=== PATIENT | female | born 1940 | race Caucasian/White ===

== ENCOUNTER 2018-08-03 16:04 | Inpatient (IN) | payer OTHER, MEDICAID ==
[~2018-08-03] VITALS: Ht 162.5 cm; Wt 56.7 kg
--- NOTE | ~2018-08-03 | PR ---
[place], [place] PROGRESS NOTE NAME: EVER DONALD UNIT #: [id number] ROOM: 315 DOCTOR: NARCISA BUNCH MD BIRTHDATE: [birth year] DOS: 08/11/2018 CHIEF COMPLAINT: "Can you get this thing off me." SUMMARY OF THE VISIT: The patient was interviewed as she was sitting in a Rosa chair. She was somewhat preoccupied at first with having the tray top removed. When I told her I did not how to do so and suggest that she use it to read a book, she nodded in approval. She was fairly pleasant and bright. There was no agitation or aggression, no mood lability. She did seem to be outwardly tolerating the medication regimen well without sedation, somnolence, or extrapyramidal symptoms. MENTAL STATUS: She is alert and oriented to person, place, but not time. Mood does seem to be trending towards euthymia. Affect is more appropriate. There is no nohelia, hypomania or psychosis. Short-term memory continues to be problematic. PLAN: I will maintain her current psychotropic regimen, engage in individual and blackwell milieu activity, returning to the least restrictive environment when psychiatrically stable. NARCISA BUNCH MD CM:PNTRANS [phone] NARCISA BUNCH MD 08/11/181952 interface
--- NOTE | ~2018-08-03 | PR ---
[place], [place] PROGRESS NOTE NAME: EVER DONALD UNIT #: [id number] ROOM: 315 DOCTOR: NARCISA BUNCH MD BIRTHDATE: [birth year] DOS: 08/09/2018 INTERVAL NOTE CHIEF COMPLAINT: The patient was somnolent. SUMMARY OF THE VISIT: The patient was sitting in a Rosa chair, sleeping. I attempted to wake her on several occasions, but she opened her eyes only once and then nodded back off. Nurses report that last night she was very scared and was crying on and off through the night and only got 1 hour of sleep despite receiving the Ambien. The Ambien had worked the first day, but now does seem to have lost its efficacy. MENTAL STATUS: My mental status examination this morning is limited due to her overall level of somnolence. On mental status, she was rather somnolent this morning. PLAN: I will discontinue the Ambien and try Klonopin as a multitasker. Not only should this aid sleep, but it should give her some antianxiety effects as well. I will increase her Exelon patch from 9.5 mg a day to 13.3 mg a day maximizing potential benefit and we will also renew her p.r.n. Ativan should she require intervention. We will engage in individual and blackwell milieu activity, returning to the least restrictive environment when psychiatrically stable. NARCISA BUNCH MD CM:PNTRANS [phone] NARCISA BUNCH MD 08/09/18 1033 interface
--- NOTE | ~2018-08-03 | PR ---
[place], [place] PROGRESS NOTE NAME: EVER DONALD UNIT #: [id number] ROOM: 315 DOCTOR: NARCISA BUNCH MD BIRTHDATE: [birth year] DOS: 08/10/2018 INTERVAL NOTE CHIEF COMPLAINT: "Good morning." SUMMARY OF THE VISIT: The patient was interviewed as she was reclining in a Rosa chair, watching television and engaging in conversation with several female peers. She stopped and engaged in conversation with me. She was fairly bright and pleasant and offered no complaints. She reports that she slept well last night and had a good appetite. Mood does seem to be strongly trending towards euthymia and she does seem to be tolerating the current medication regimen well. MENTAL STATUS: She is alert and oriented to person, place, but not to time. Mood does seem to be more euthymic. Affect is more appropriate. There is no nohelia or hypomania. There is no gross psychosis. Short term memory has gaps, otherwise she is intact. PLAN: I will maintain her current psychotropic regimen, engage in individual, and blackwell milieu activity, returning then to the least restrictive environment when psychiatrically stable. NARCISA BUNCH MD CM:PNTRANS [phone] NARCISA BUNCH MD 08/10/18 1558 interface
--- NOTE | ~2018-08-03 | WRIGHTHP ---
[place], [place] PATIENT HISTORY AND PHYSICAL EXAM NAME: EVER DONALD UNIT #: [id number] ROOM: 315 DOCTOR: NARCISA BUNCH MD BIRTHDATE: [birth year] DOS: 08/04/2018 INITIAL PSYCHIATRIC EVALUATION CHIEF COMPLAINT: "Everyone thinks I am a kelley cake." HISTORY OF PRESENT ILLNESS: This is a 77-year-old white female who is a resident of [place] in [facility]. The patient is admitted here to the [facility] due to increased confusion and significant agitation. The patient has been threatening staff saying that she is going to buy a gun and shoot them up and knows. She has actually taken her fingers and simulated a gun action. She also has reported that she will shoot herself as well because she is depressed and despondent. The patient has been very tearful and has not been attending her ADLs. She has not been sleeping or eating well. She is admitted now to rule out organic factors and to stabilize on medication, returning to the least restrictive environment when psychiatrically stable. PAST MEDICAL HISTORY: Remarkable for anorexia, a questionable history of bipolar disorder, cardiac pacemaker placement, thyroid problems, hyperlipidemia, hypertension, gait instability, GERD, debility in general, vascular dementia. ALLERGIES: She has no known allergies. SOCIAL HISTORY: She does not drink, smoke nor does she use illicit drugs. STRENGTHS: Ambulatory, good verbal skills. WEAKNESSES: Poor coping skills, confusion. MENTAL STATUS: She is alert and oriented to person, possibly place, not time. Mood does seem to be depressed with anxious overtones. She endorses multiple neurovegetative symptoms. There is no hypomania or nohelia. There is no gross psychosis. Short-term memory is very problematic. DIAGNOSIS: Major depression, recurrent, severe. PLAN: I have discontinued her Lexapro due to ineffectiveness and maintained her on Namenda, but increase the dose from 15 mg a day to 10 mg twice daily. I have added Remeron 15 mg at bedtime as an antidepressant and also started her on Exelon patch 4.6 mg in the morning to augment the effectiveness of the Namenda. Given the fact that there is some mood lability and inappropriate behavior, I have started Zyprexa 2.5 mg in the a.m. Screening examinations this morning revealed a low vitamin D level of 16.4. I will go ahead and treat with vitamin D 5000 International Units daily. We will engage her in individual and blackwell milieu activity, returning to the least restrictive environment when psychiatrically stable. [place], [place] PATIENT HISTORY AND PHYSICAL EXAM NAME: EVER DONALD UNIT #: [id number] ROOM: [facility] DOCTOR: NARICSA BUNCH MD BIRTHDATE: [birth year] NARCISA BUNCH MD CM:HISPHYS:PATIENT HISTORY AND PHYSICAL EXAMINATION 4 NARCISA BUNCH MD 08/04/18 0952 interface
--- NOTE | ~2018-08-03 | PR ---
[place], [place] PROGRESS NOTE NAME: EVER DONALD UNIT #: [id number] ROOM: 315 DOCTOR: NARCISA BUNCH MD BIRTHDATE: [birth year] DOS: 08/06/2018 INTERVAL NOTE CHIEF COMPLAINT: "Oh, thank you for breakfast." SUMMARY OF THE VISIT: The patient was interviewed as she was finishing her breakfast. She engaged readily in conversation. She was fairly bright and pleasant with me, although nurses report she does have some behaviors later in the day and did not sleep well at all last night. MENTAL STATUS: She is alert and oriented to self, unclear of place, certainly not time. Mood does seem still to be labile and at times inappropriate. There are also depressive overtones present. There is no nohelia or hypomania. Short term memory is problematic. PLAN: I will change her Zyprexa from 2.5 mg in the morning to 2.5 mg at night to help improve her overall sleep picture. I will add Rozerem as a non-addictive sleep aid at bedtime to see if we can get her sleeping at night and therefore be more rested and engaging during the day . We will engage in individual and blackwell milieu activity, returning to the least restrictive environment when psychiatrically stable. NARCISA BUNCH MD CM:PNTRANS [id number] NARCISA BUNCH MD 08/06/18 1237 interface
--- NOTE | ~2018-08-03 | PR ---
[place], [place] PROGRESS NOTE NAME: EVER DONALD UNIT #: [id number] ROOM: 315 DOCTOR: NARCISA BUNCH MD BIRTHDATE: [birth year] DOS: 08/07/2018 CHIEF COMPLAINT: The patient was resting in her bed. SUMMARY OF THE VISIT: The patient was attempted to be interviewed, but she was resting, curled up in a blanket in her bed. Attempts to call out her name and gently put my hand on her shoulder were met with her ignoring me and continuing to attempt to sleep. Nurses report, she had a bad night and did not sleep well and was up and down most of the night. MENTAL STATUS: Limited due to her level of sedation this morning. PLAN: I will maintain her current psychotropic regimen. I will discontinue the Rozerem as it did not seem to be strong enough to sustain sleep and add Ambien 2.5 mg at bedtime. We will monitor for risks, benefits, engage in individual and blackwell milieu activity, returning to the least restrictive environment when psychiatrically stable. NARCISA BUNCH MD CM:PNTRANS [id number] NARCISA BUNCH MD 08/07/18 0935 interface
--- NOTE | ~2018-08-03 | PR ---
[place], [place] PROGRESS NOTE NAME: EVER DONALD UNIT #: [id number] ROOM: 315 DOCTOR: NARCISA BUNCH MD BIRTHDATE: [birth year] DOS: 08/12/2018 INTERVAL NOTE CHIEF COMPLAINT: "I am doing well, thank you." SUMMARY OF THE VISIT: The patient was interviewed as she was sitting in the dining area. She had already eaten breakfast. She engaged readily in conversation, voicing no complaints. She was pleasant upon approach, although superficial. She remains confused, but pleasantly so. MENTAL STATUS: She is alert and oriented to person, unclear place, certainly not time. Mood does seem to be strongly trending towards euthymia. Affect is much more appropriate. There is no nohelia or hypomania noted. Short term memory continues to be problematic. PLAN: I will go ahead and maintain her current psychotropic regimen. Continue to monitor for side effects and benefits, engage in individual and blackwell milieu activity, returning to the least restrictive environment when psychiatrically stable. NARCISA BUNCH MD CM:PNTRANS [id number] NARCISA BUNCH MD 08/13/18 0319 interface
--- NOTE | ~2018-08-03 | DS ---
[place], [place] DISCHARGE SUMMARY NAME: EVER DONALD UNIT #: [id number] ROOM: 315 DOCTOR: NARCISA BUNCH MD BIRTHDATE: [birth year] DOS: 08/13/2018 DISCHARGE SUMMARY CHIEF COMPLAINT: "Everyone thinks I am a kelley cake. HISTORY OF PRESENT ILLNESS: This is a 77-year-old white female who is a resident of [place] in [place], [place]. The patient is admitted here due to increased confusion and significant agitation. The patient has been threatening staff, saying she is going to buy a gun and shoot them and has been using her fingers to simulate a gun. She reports that she will shoot herself as well because she is so depressed and despondent. She is very tearful and has not been attending to her ADLs. She has not been sleeping or eating well. She is admitted to rule out organic factors and to attempt to stabilize on medication. SUMMARY OF HOSPITAL COURSE: The patient was admitted to the unit where her Lexapro was discontinued due to ineffectiveness. Remeron was added as an antidepressant that would rapidly improve sleep and appetite. Additionally, her Abilify was discontinued also due to ineffectiveness and she was started on Zyprexa 2.5 mg in the morning and it was later shifted to nighttime. It was hoped that the Zyprexa would not only increase the effectiveness of the Remeron, but it too would help stimulate appetite and improve sleep. Namenda was increased from its 15 mg dose to 10 mg twice daily and she was started on Exelon patch 4.6 mg a day and over the course of her stay, this was increased to its maximum dose of 13.3 mg a day. Screening examinations revealed her to have a low vitamin D level of 16.4, so she was started on vitamin D 5000 international units daily. With the combination of the Exelon and Namenda impacting positively on ADL maintenance, behavior, and cognition and the Remeron and Zyprexa and improving her mood, the patient improved dramatically. Family wished her to return back to [facility] where she had been earlier because she had done better there and knew more of the people. The patient was discharged to [facility]. MENTAL STATUS AT DISCHARGE: The patient is alert and oriented to person, place, but not time. Mood is much more euthymic and she smiled readily. She engaged in reasonable conversation. Speech rate and pattern was somewhat slow, but normal for the most part. There is no depression, no hypomania or nohelia. There are no gross psychotic symptoms. No delusions, paranoia. Short term memory remains problematic. DIAGNOSES UPON DISCHARGE: Major depression, recurrent with psychotic features and Alzheimer's dementia. DISPOSITION: Her prescriptions have been printed and will be sent with her. I will be the treating psychiatrist upon her admission to [facility]. At the time of discharge, she was medically and psychiatrically stable. [place], [place] DISCHARGE SUMMARY NAME: EVER DONALD UNIT #: [id number] ROOM: [facility] DOCTOR: NARCISA BUNCH MD BIRTHDATE: [birth year] NARCISA BUNCH MD CM:DISCHARG [id number] NARCISA BUNCH MD 08/13/18 1427 interface
--- NOTE | ~2018-08-03 | PR ---
[place], [place] PROGRESS NOTE NAME: EVER DONALD UNIT #: [id number] ROOM: 315 DOCTOR: NARCISA BUNCH MD BIRTHDATE: [birth year] DOS: 08/08/2018 CHIEF COMPLAINT: "Oh, I had breakfast, thank you for asking." SUMMARY OF THE VISIT: The patient was interviewed as she had finished her breakfast and was sitting with several female peers. She engaged readily in conversation, offering no other complaints. Outwardly, I saw no sedation, somnolence, extrapyramidal symptoms or tardive dyskinesia. MENTAL STATUS: She is alert and oriented with significant time gaps. Mood does seem to be more euthymic. Affect is more appropriate. There is no nohelia or hypomania. There is no gross psychosis. Short term memory continues to be problematic. PLAN: I will continue her current psychotropic regimen, engage in individual and blackwell milieu activity, returning to the least restrictive environment when psychiatrically stable. NARCISA BUNCH MD CM:PNTRANS [phone] NARCISA BUNCH MD 08/08/18 1008 interface
--- NOTE | ~2018-08-03 | PR ---
[place], [place] PROGRESS NOTE NAME: EVER DONALD UNIT #: [id number] ROOM: 315 DOCTOR: NARCISA BUNCH MD BIRTHDATE: [birth year] DOS: 08/05/2018 CHIEF COMPLAINT: "Oh, I am fine here, thank you, honey." SUMMARY OF THE VISIT: The patient was interviewed as she was sitting in a Rosa chair watching television. She stopped and engaged in conversation with me. She reports no problems, stating that she slept well, ate well and feels well, is just anxious to be able to go home. She voiced no other complaints. MENTAL STATUS: She is alert and oriented to person, possibly place, not to time. Mood seems more euthymic. Affect is more appropriate. There is no nohelia or hypomania noted. No gross psychotic symptoms. No auditory or visual hallucinations. No delusions, no paranoia. Short-term memory is poor and has gaps. She processes information slowly. PLAN: I will go ahead and increase her Exelon patch from 4.6 to 9.5 mg a day, hoping to impact positively on ADL maintenance, behavior, and cognition. We will engage in individual and blackwell milieu activities, returning to the least restrictive environment when psychiatrically stable. NARCISA BUNCH MD CM:PNTRANS [phone] NARCISA BUNCH MD 08/05/18 1249 interface
[2018-08-03] MEDS ORDERED: ARIPIPRAZOLE5 MG PO (17:19)
[2018-08-03] MEDS ORDERED: DEPAKOTE SPRIN125 MG PO (17:20)
[2018-08-03] MEDS ORDERED: BISACODYL10 MG R (17:20)
[2018-08-03] MEDS ORDERED: FERROUS SULFAT324 M2 PO (17:21)
[2018-08-03] MEDS ORDERED: LOSARTAN POTAS100 M1 PO (17:22)
[2018-08-03] MEDS ORDERED: LEXAPRO5 M1 PO (17:22)
[2018-08-03] MEDS ORDERED: METHIMAZOLE5 M1 PO (17:23)
[2018-08-03] MEDS ORDERED: MEGESTROL ACETA20 MG PO (17:23)
[2018-08-03] MEDS ORDERED: METOPROLOL SUCC50 M1 PO (17:24)
[2018-08-03] MEDS ORDERED: NAMENDA-5 PO (17:25)
[2018-08-03] MEDS ORDERED: NAMENDA10 MG PO (17:25)
[2018-08-03] MEDS ORDERED: PANTOPRAZOLE SO40 MG PO (17:26)
[2018-08-03] MEDS ORDERED: K-TAB20 MEQ PO (17:27)
[2018-08-03] MEDS ORDERED: PRAVASTATIN SOD40 MG PO (17:29)
--- NOTE | 2018-08-03 17:59 | NUR ---
EVER DONALD a 77 year old F admitted via stretcher from [facility] as a voluntary BY POA admission. Arrived on unit at 1759. ALLERGIES: NKA. Vital signs are: 98.5-81-16 150/70 SPO2 96%RA. The client'S POA VERBALLY CONSENTED TO the following forms with stated understanding: Authorization For The Release of Medical Information, Clothing List, Consent to Voluntary Admission and Hospitalization, Consent and Release Forms/Receipt of Rights, Acknowledgement of Advance Directive Information, Behavioral Health Consent Form, and Informed Consent of Medications. WITNESSED BY SECOND RN. [facility] A search was conducted and hazardous articles were removed. Client was oriented to the unit. DAVIDE DANIEL
[2018-08-03 18:21] VITALS: BP 150/70
--- NOTE | 2018-08-03 18:35 | NUR ---
DR SANFORD NOTIFIED OF PT ON UNIT.
[2018-08-03 20:43] VITALS: BP 154/68
--- NOTE | 2018-08-03 22:04 | NUR ---
CALLED RESIDENT AT [phone], SPOKE TO AND UPDATED ON PATIENTS HOME MEDICATIONS STILL NEEDING CONTINUED. NO OTHER ORDERS RECEIVED.
--- NOTE | 2018-08-03 22:43 | NUR ---
ON UNIT TO SEE PATIENT AT THIS TIME.
--- NOTE | 2018-08-04 00:18 | NUR ---
CALLED RESIDENT NUMBER AT [phone] BARDALES, UPDATED ON PATIENTS BLOOD PRESSURE AT HS WAS 154/68 MANUAL AND THE CONTINUED METOPROLOL DIDNT START UNTIL THE AM, STATED TO GIVE 1X DOSE OF METOPROLOL 50MG NOW. NO OTHER ORDERS RECIEVED.
[2018-08-04 01:24] LABS: BILIRUBIN NEGATIVE (NEGATIVE); BLOOD NEGATIVE (NEGATIVE); CLARITY CLEAR (CLEAR); COLOR YELLOW (YELLOW); GLUCOSE NEGATIVE (NEGATIVE); KETONE NEGATIVE (NEGATIVE); LEUKO ESTERASE 2+ (NEGATIVE); NITRITE NEGATIVE (NEGATIVE); PH 5.5 (5.0-9.0); SPECIFIC GRAVITY 1.015 (1.005-1.030); UROBILINOGEN 0.2 E.U./dl (0.2-1.0)
[2018-08-04 01:33] LABS: EPITHELIAL CELLS 15-20; WBC 21-30 wbc/hpf (0-5)
--- NOTE | 2018-08-04 05:25 | NUR ---
P-CONFUSION, AGITATION. PT GERSTURING HAND IN GUN LIKE POSTION WHILE POINTING AT STAFF AND STATING "GET OUT RIGHT NOW BEFORE I PUT BULLETS UP YOUR NOSE". I-ASSESS ORIENTATION, MOOD, AND BEHAVIOR. PROVIDE 1:1 FOR PATIENT TO VOICE FEELINGS WITH EMOTIONAL SUPPORT NEEDED. PROVIDE LOW STIMULI ENVIRONMENT WITH DIVERSION TECHNIQUES TO HELP CALM PATIENT NEEDED. ENCOURAGE MEDICATION COMPLIANCE. R-PT ALERT AND ORIENTED TO SELF, CONFUSED IN ALL OTHER AREAS. MOOD LABILE, ANGRY/IRRITABLE AT TIMES. PT NOTED TO HAVE INCREASED AGITATION AND CONFUSION AFTER HS SNACK, PT UNRECEPTIVE TO REALITY ORIENTATION WHEN PRESENTED, PT ASSISTED OUT OF DININGROOM INTO A QUIET ROOM FOR DECREASED STIMULI AND PROVDIED WITH 1:1. INTERVENTIONS EFFECTIVE IN CALMING PATIENT. MEDICATION COMPLIANT WITHOUT DIFFICULTY, UNABLE TO PROVIDE EDUCATION DUE TO COGNITION. PT DENIES SI AND HALLUCINATIONS, NO NOTED RESPONDING TO INTERNAL STIMULI. NO PHYSICAL COMPLAINTS VOICED. PT CURRENTLY SITTING UP ACROSS FROM NURSES STATION DUE TO LACK OF SAFETY AWARENESS. RESPIRATIONS EASY AND REGULAR. NO SIGNS OR SYMPTOMS OF DISTRESS NOTED. P-CONTINUE TO MONITOR MOOD AND BEHAVIORS. PROVIDE 1:1 WITH EMOTIONAL SUPPORT NEEDED. REORIENT AND PRESENT REALITY NEEDED. ENCOURAGE MEDICATION COMPLIANCE.
[2018-08-04 06:02] LABS: ALBUMIN 3.6 gm/dl (3.1-4.5); ALKALINE PHOSPHATASE 117 U/L (45-117); BUN 24 mg/dl (7-24); CHLORIDE 110 mmol/L (98-107); CHOLESTEROL 170 mg/dL (<200); CREATININE 0.82 mg/dL (0.55-1.02); HDL CHOLESTEROL 49 mg/dl (40-60); LDL CHOLESTEROL 79 mg/dL (9-159); POTASSIUM 3.5 mmol/L (3.5-5.1); SGOT/AST 22 IU/L (3-35); SGPT/ALT 23 U/L (12-78); SODIUM 143 mmol/L (136-145); TOTAL PROTEIN 7.7 gm/dL (6.4-8.2); TRIGLYCERIDES 212 mg/dl (<150); VLDL CHOLESTEROL 42 mg/dL (6-40)
[2018-08-04 06:20] LABS: BASO # 0.1 10*3/uL (0.0-0.1); BASO % 0.5 % (0.0-1.0); EOS # 0.3 10*3/uL (0.0-0.4); EOS % 2.6 % (1.0-4.0); HEMATOCRIT 36.1 % (37.0-47.0); HEMOGLOBIN 11.5 g/dl (12.0-16.0); LYMPH # 1.5 10*3/uL (1.3-4.4); LYMPH % 14.1 % (27.0-41.0); MEAN CORPUSCULAR HGB 30.6 pg (27.0-31.0); MEAN CORPUSCULAR HGB CONC 31.9 g/dl (33.0-37.0); MEAN PLATELET VOLUME 11.2 fl (9.6-12.3); MONO # 0.7 10*3/uL (0.1-1.0); MONO % 6.9 % (3.0-9.0); NEUT # 7.9 10*3/uL (2.3-7.9); NEUT % 75.3 % (47.0-73.0); PLATELET COUNT AUTOMATED 309 10*3/uL (130-400); RED BLOOD COUNT 3.76 10*6/uL (4.10-5.10); RED CELL DISTRI WIDTH 14.2 % (0-14.5); WHITE BLOOD COUNT 10.5 10*3/uL (4.8-10.8)
--- NOTE | 2018-08-04 06:36 | NUR ---
PATIENT OBSERVED ON Q 15 MIN CHECKS TO HAVE SLEPT APPROX 2 HOURS WITH MULTIPLE AWAKENINGS NOTED OF PATIENT YELLING OUT AND STATING SHE IS GOING TO "SHOOT EVERYONE". PT CONTINUES TO BE UNRECEPTIVE TO REDIRECTION AND REORIENTATION WHEN PRESENTED. PT CURRENTLY SITTING UP IN DINING ROOM WATCHING TV, NO SIGNS OR SYMPTOMS OF DISTRESS NOTED.
[2018-08-04 06:49] LABS: VITAMIN D, 25-HYDROXY 16.4 ng/mL (30-100)
[2018-08-04 07:20] VITALS: BP 154/59
--- NOTE | 2018-08-04 08:00 | NUR ---
Treatment Plan meeting with Dr. Simone RN and Oriental Medicine Practitioner. Plan for discharge next week. Pt. to return to [facility].
--- NOTE | 2018-08-04 11:10 | NUR ---
P-CONFUSION, ANGER WITH STAFF, MAKING PISTOL MOTIONS WITH HER HANDS STATING "MY 600MM WILL TAKE CARE OF YOU" THEN PT WILL CHANGE HER MOOD TO COOPERATIVE AND WANTED THIS NURSE TO SIT NEXT TO HER A FRIEND I-ASSESS ORIENTATION, MOOD, AND BEHAVIOR. PROVIDE 1:1 FOR PATIENT TO VOICE FEELINGS WITH EMOTIONAL SUPPORT NEEDED. PROVIDE LOW STIMULI ENVIRONMENT WITH DIVERSION TECHNIQUES SUCH COLORING AND TALKING WITH STAFF R-PT ALERT AND ORIENTED TO SELF, CONFUSED IN ALL OTHER AREAS. MOOD LABILE, ANGRY/IRRITABLE AT TIMES. MEDICATION COMPLIANT WITHOUT DIFFICULTY, PT DENIES SI AND HALLUCINATIONS DUE TO LACK OF SAFETY AWARENESS. RESPIRATIONS EASY AND REGULAR. NO SIGNS OR SYMPTOMS OF DISTRESS NOTED.
--- NOTE | 2018-08-04 11:30 | NUR ---
Spoke with Admissions at [facility]. Pt. is [facility] [employer] [facility] at facility and will return at discharge.
--- NOTE | 2018-08-04 12:49 | NUR ---
Faxed admission clinical to [facility]. Awaiting response.
--- NOTE | 2018-08-04 18:04 | NUR ---
psychosocial hx completed
[2018-08-04 20:00] VITALS: BP 150/68
--- NOTE | 2018-08-05 02:57 | NUR ---
P-CONFUSION, RESTLESS I-ASSESS ORIENTATION, MOOD, AND BEHAVIOR. PROVIDE 1:1 FOR PATIENT TO VOICE FEELINGS WITH EMOTIONAL SUPPORT NEEDED. ENCOURAGE MEDICATION COMPLIANCE. MONITOR SLEEP. R-PT ALERT AND ORIENTED TO SELF, CONFUSED IN ALL OTHER AREAS. MOOD LABILE. PT SAT IN DINING ROOM FOR HS SNACK, INTERACTIVE WITH STAFF WHEN PROMPTED. PT UNRECEPTIVE TO REALITY ORIENTATION WHEN PRESENTED DURING INTERACTIONS, STATES "I KNOW WHATS GOING ON, IM NOT THAT STUPID, AT LEAST NOT YET". MEDICATION COMPLIANT WITHOUT DIFFICULTY, UNABLE TO PROVIDE EDUCATION DUE TO COGNITION. PT DENIES SI/HI AND HALLUCINATIONS, NO NOTED RESPONDING TO INTERNAL STIMULI. NO PARANOIA OR DELUSIONS OBSERVED. NO AGITATION OR AGGRESSION NOTED SO FAR THIS SHIFT. NO PHYSICAL COMPLAINTS VOICED. PT CURRENTLY SITTING UP ACROSS FROM NURSES STATION IN BASILIO CHAIR DUE TO LACK OF SAFETY AWARENESS, EYES CLOSED, RESPIRATIONS EASY AND REGULAR. NO SIGNS OR SYMPTOMS OF DISTRESS NOTED. P- CONTINUE TO MONITOR MOOD AND BEHAVIORS. PROVIDE 1:1 WITH EMOTIONAL SUPPORT NEEDED. REORIENT AND PRESENT REALITY NEEDED. ENCOURAGE MEDICATION COMPLIANCE.
--- NOTE | 2018-08-05 03:56 | NUR ---
24 HOUR CHART CHECK COMPLETED.
--- NOTE | 2018-08-05 05:38 | NUR ---
PATIENT OBSERVED ON Q 15 MIN CHECKS TO HAVE SLEPT APPROX 6 HOURS WITH NO AWAKENINGS OR SIGNS AND SYMPTOMS OF DISTRESS NOTED.
[2018-08-05 07:51] VITALS: BP 143/50
--- NOTE | 2018-08-05 08:00 | NUR ---
Treatment Plan meeting with Dr. Simone RN and Scan Coordinator. Plan for discharge next week. Pt. will return to [place].
--- NOTE | 2018-08-05 08:55 | NUR ---
DR. SANFORD ON UNIT TO ASSESS PATIENT.
--- NOTE | 2018-08-05 09:56 | NUR ---
DR LAGOS NOTIFIED ON UA FINAL RESULTS, RECOMMENDING RECOLLECT; POSSIBLE CONTAMINATED. NEW ORDER IN PLACE.
--- NOTE | 2018-08-05 13:21 | NUR ---
IP 3 days karlos per [facility], NRD 08/06. Auth # [id number]
--- NOTE | 2018-08-05 17:16 | NUR ---
P: IRRITABLE AFTER VISITS; HOLDING FINGERS UP IF SHE IS HOLDING A GUN AND FIRING TOWARDS STAFF. BANGING ON TABLE. I: ONE ON ONE, REDIRECTION, CHANGE OF ENVIRONMENT TO LOW STIMULUS AREA AND SPACE PROVIDED. R: CHANGE OF ENVIRONMENT EFFECTIVE. PATIENT IS ALERT TO PERSON WITH CONFUSION; ABLE TO VOICE NEEDS. MOOD IS IRRITABLE AT TIMES. LONG/SHORT TERM MEMORY DIFICITS NOTED. DENIES ANY HALLUCINATIONS, DELUSIONS, HI/SI OR PAIN. RESPONDS TO INTERNAL STIMULI. MEDICATION COMPLAINT. Q 15 MINUTE SAFETY CHECKS MAINTAINED. 1-2 PERSON ASSIST WITH ACTIVITIES OF DAILY LIVING, INCONTINENT OF BOWEL AND BLADDER, SET UP FOR MEALS, INTAKES ARE FAIR WITH ADEQUATE FLUIDS. P:CONTINUE TO MONITOR MOOD AND AGGRESSION TOWARDS STAFF; PROVIDE ONE ON ONE AND REDIRECTION NEEDED.
[2018-08-05 20:00] VITALS: BP 140/55
--- NOTE | 2018-08-05 21:54 | NUR ---
INTERACTIVE WITH STAFF. MEDICATION EDUCATION COMPLETED. CLIENT THINKS SHE HAS A GUN AND A KNIFE AND PRETENDS TO SHOOT OR THROW A KNIFE AT STAFF AND PEERS. HAD TO GET HER OUT OF BED AND BACK INTO BASILIO CHAIR BECAUSE SHE THREATENED TO SHOOT HER ROOM MATE. CONTUING TO POINT FAKE GUN AT STAFF AND POULL TRIGGER, SHE THEN ACTED LIKE SHE WAS THROWING A KNIFE AT ME.
--- NOTE | 2018-08-06 00:05 | NUR ---
REMAINS UP IN CHAIR. HAVING FULL CONVERSATION WITH UNSEEN PERSON/PERSONS
--- NOTE | 2018-08-06 03:02 | NUR ---
REMAINS AWAKE IN DININGROOM. MOVING ALL EXTREMETIES. HAS NOT SLEPT MUCH TONIGHT
--- NOTE | 2018-08-06 03:02 | NUR ---
24 HR chart check completed.
--- NOTE | 2018-08-06 05:56 | NUR ---
DID NOT SLEEP ALL NIGHT
[2018-08-06 07:29] VITALS: BP 135/60
[2018-08-06 08:00] VITALS: BP 144/59
--- NOTE | 2018-08-06 08:15 | NUR ---
Treatment Plan meeting with Dr. Simone RN and Preparing Box Tender. Plan for discharge at the end of next week. Pt. will return to [facility] at discharge when stable.
--- NOTE | 2018-08-06 09:30 | NUR ---
Received Call from Pt. Requesting that Patient discharge to [facility] at [facility] at discharge and not return to [place]. Spoke with Facility and they will accept patient at discharge. Clinical Updates faxed to [facility]. Will Follow Next week for further discharge Plans.
--- NOTE | 2018-08-06 09:54 | NUR ---
DR SANFORD AND DR LAGOS ON UNIT TO SEE PATIENT
--- NOTE | 2018-08-06 12:39 | NUR ---
P-CONFUSION, HALLUCINATION. PATIENT ALERT WITH CONFUSION. PATIENT WITH SHORT TERM AND FPC MEMORY DEFICITS. NO RESPIRATORY DISTRESS NOTED. PATIENT WITH NO SUICIDAL OR HOMICIDAL IDEATIONS. PATIENT WITH NO DELUSIONS. PATIENT WITH VISUAL HALLUCINATIONS. PATIENT REACHING FOR UNSEEN OTHERS. I-REDIRECTION WITH 1:1 THERAPEUTIC INTERVENTIONS AND PRESENT REALITY. EDUCATE AND ENCOURAGE MEDICATION COMPLIANCE. R-PATIENT MEDICATION COMPLIANT. REDIRECTION WITH 1:1 THERAPEUTIC INTERVENTIONS EFFECTIVE FOR SHORT PERIODS OF TIME DUE TO PATIENT COGNITON. PATIENT AGITATED INTERMITTENTLY THROUGHOUT SHIFT. PATIENT WITH ATTEMPTS TO TRANSFER WITHOUT ASSIST. P-CONTINUE TO ENCOURAGE MEDICATION COMPLIANCE, CONTINUE TO PRESENT REALITY, ENCOURAGE GROUP THERAPY WHILE AWAKE
--- NOTE | 2018-08-06 14:09 | NUR ---
Faxed continued review stay clinical to [facility]. Awaiting response.
--- NOTE | 2018-08-06 15:54 | NUR ---
Shift chart check completed.
--- NOTE | 2018-08-06 18:04 | NUR ---
URINE SPECIMEN COLLECT VIA CLEAN CATCH. URINE CLOUDY YELLOW. URINE OUTPUT OF 600ML. PATIENT WITH NO COMPLAINT OF DYSURIA.
[2018-08-06 18:12] LABS: BILIRUBIN NEGATIVE (NEGATIVE); BLOOD NEGATIVE (NEGATIVE); CLARITY SL CLOUDY (CLEAR); COLOR YELLOW (YELLOW); GLUCOSE NEGATIVE (NEGATIVE); KETONE NEGATIVE (NEGATIVE); LEUKO ESTERASE 2+ (NEGATIVE); NITRITE NEGATIVE (NEGATIVE); SPECIFIC GRAVITY 1.015 (1.005-1.030); UROBILINOGEN 0.2 E.U./dl (0.2-1.0)
[2018-08-06 18:20] LABS: BACTERIA 2+; WBC 41-50 wbc/hpf (0-5)
--- NOTE | 2018-08-06 19:57 | NUR ---
DR BARDALES UPDATED ABOUT URINALYSIS SPECIMEN RESULTS. NO NEW ORDERS GIVEN AT THIS TIME. PATIENT NOT SYMPTOMATIC OR WITH COMPLAINT OF DYSURIA
[2018-08-06 20:00] VITALS: BP 140/70
--- NOTE | 2018-08-06 20:48 | NUR ---
LABILE AND ISOLATIVE. SMILING THEN SAYING SARCASTIC REMARKS. MEDICATION COMPLIANT. REFUSED TO HAVE INSULIN IN ABD. INSISITED TO BE GIVEN LEFT UPPER ARM. REFUSED SNACK. TAKING PO FLUIDS. STATES HAD A FAIR DAY. DECLINED TO EXPAND.
--- NOTE | 2018-08-06 20:52 | NUR ---
ALERT AND INTERACTIVE. NO THREATENING TO SHOOT OR STAB PEOPLE AT THIS TIME. STATES HAD A GOOD DAY. REFUSES TO KEEP ARM BANDS ON WRIST. WILL CONTINUE TO MONITOR Q 15 MINUTES FOR SAFETY. MONITOR FOR CHANGES IN BEHAVIOR AND OR MOOD
--- NOTE | 2018-08-07 00:28 | NUR ---
24 HR chart check completed.
--- NOTE | 2018-08-07 02:30 | NUR ---
RESTING AT THIS TIME WITH EYES CLOSED
--- NOTE | 2018-08-07 05:53 | NUR ---
SLEPT FAIR AFTER 215AM. MOVES SELF AROUND IN BED
[2018-08-07 07:58] VITALS: BP 142/65
--- NOTE | 2018-08-07 09:16 | NUR ---
P-CONFUSION. PATIENT ALERT WITH CONFUSION. PATIENT WITH SHORT TERM AND USP MEMORY DEFICITS. NO RESPIRATORY DISTRESS NOTED. PATIENT WITH NO SUICIDAL OR HOMICIDAL IDEATIONS. PATIENT WITH NO DELUSIONS OR HALLUCINATIONS AT THIS TIME. I-REDIRECTION WITH 1:1 THERAPEUTIC INTERVENTIONS AND PRESENT REALITY. EDUCATE AND ENCOURAGE MEDICATION COMPLIANCE. R-PATIENT MEDICATION COMPLIANT. REDIRECTION WITH 1:1 THERAPEUTIC INTERVENTIONS EFFECTIVE FOR SHORT PERIODS OF TIME DUE TO PATIENT COGNITON. PATIENT AGITATED INTERMITTENTLY THROUGHOUT SHIFT. PATIENT NAPPING IN BED WITH BLANKET AROUND HEAD AND AROUSABLE AT THIS TIME P-CONTINUE TO ENCOURAGE MEDICATION COMPLIANCE, CONTINUE TO PRESENT REALITY, ENCOURAGE GROUP THERAPY WHILE AWAKE
--- NOTE | 2018-08-07 09:49 | NUR ---
Shift chart check completed.
--- NOTE | 2018-08-07 11:27 | NUR ---
DR SANFORD AND DR AGRAWAL ON UNIT TO SEE PATIENT
--- NOTE | 2018-08-07 11:53 | NUR ---
AM GROUP/EXERCISES/GAMES PT REMIANED IN BED SLEEPING ALTHOUGH ENCOURAGED TO ATTEND AND PARTICIPATE. PT WILL CONTINUE TO BE ENCOURAGED TO ATTEND AND PARTICIPATE IN FUTURE GROUP SESSIONS.
--- NOTE | 2018-08-07 16:08 | NUR ---
PM GROUP/LEISURE SKILLS PT ATTENDED AND PARTICIPATED DURING GROUP TO BEST OF ABILITY. PT EXPRESSING CONFUSION STATING "MY WAS JUST HERE NOW HE IS GONE, WE NEED TO GO GET HIM" STAFF UTILIZED REDIRECTION. PT ON TASK REST OF GROUP WITH NO AGGRESSION EXPRESSED AT THIS TIME. PT WILL CONTINUE TO ATTEND AN DPARTICIPATE IN FUTURE GROUP SESSIONS.
[2018-08-07 20:00] VITALS: BP 106/54
--- NOTE | 2018-08-07 20:48 | NUR ---
NOTIFIED MANUAL BP 106/54 HR 75, STATES TO HOLD TOPROL XL 50MG TONIGHT. WITNESSED BY 2ND RN [email or web address].
--- NOTE | 2018-08-07 21:48 | NUR ---
Patient alert with confusion. ST/LT memory deficits noted. No SI/HI noted. No hallucinations/delusions noted at this time. Patient compliant with medications without any difficulty. Provided 1:1 with patient for emotional support. Redirected patient when appropriate. Plan to encourage medication compliance. Continue to redirect/reorient when needed and appropriate and continue to provide 1:1 for emotional support. Q 15 minute safety checks continued and maintained. See [facility] flowsheet for further documentation.
--- NOTE | 2018-08-07 23:56 | NUR ---
24 HR chart check completed.
--- NOTE | 2018-08-08 04:54 | NUR ---
Patient slept approx. 7 hours throughout shift. Q 15 minute safety checks continued and maintained.
[2018-08-08 07:49] VITALS: BP 147/58
--- NOTE | 2018-08-08 08:00 | NUR ---
Patient resting quietly with no c/o discomfort. Respirations easy and regular. Vital signs stable. No overt distress. DAVIDE DANIEL
--- NOTE | 2018-08-08 10:15 | NUR ---
DR. SANFORD ON UNIT TO ASSESS PT.
--- NOTE | 2018-08-08 11:47 | NUR ---
PT RESTLESS, IRRITABLE, CONFUSED. PT ASSESSED FOR ORIENTATION LEVEL, MOOD AND AFFECT. ASSESSED FOR DEPRESSED MOOD, SI/HI. ASSESSED FOR HALLUCINATIONS AND DELUSIONS. ASSESSED FOR FALL RISK. PROVIDED WITH RELAXATION TECHNIQUES. PT IS ORIENTED TO PERSON ONLY, STATING IT IS "1999". PT DENIES SADNESS OR DEPRESSED MOOD, STATES "PEOPLE JUST DON'T LIKE MY MUSIC" PT IS BANGING ON TABLE LIKE DRUMS AND YELLING OUT/SINGING . DENIES SI, INTENT OR PLAN. DENIES HALLUCINATIONS AND DELUSIONS. NO OVERT S/S OF ATTENDING TO INTERNAL STIMULI. PT IS CONSIDERED A FALL RISK. SCIENTOLOGIST/PRAISE MUSIC EFFECTIVE AT REDUCING AGITATION. WILL REORIENT APPROPRIATE. PT ENCOURAGED TO PARTICIPATE IN GROUP ACTIVITIES. WILL PROVIDED PT WITH ACTIVITIES OF INTEREST, SUCH COLORING PER HER REQUEST. PROVIDE EMOTIONAL SUPPORT NEEDED. Q 15 MIN MONITORING PER POLICY.
--- NOTE | 2018-08-08 12:14 | NUR ---
AM GROUP/EXERCISES/ART/GAMES PT ATTENDED LAST HALF OF GROUP AND CHOSE TO PARTICIPATE BY COLORING. PT EXPRESSING CONFUSION STATING "YOU HATE ME" AND WHEN STAFF EXPLAINS THAT TO NOT BE TRUE PT STATES "YOU CAN SAY THAT BUT I STILL FEEL YOU HATE ME" STAFF REMINDED PT AND PT ON TASK REMAINDER OF GROUP. PT WILL CONTINUE TO BE ENCOURAGED TO ATTEND AND PARTICIPATEIN FUTURE GROUP SESSIONS.
--- NOTE | 2018-08-08 17:39 | NUR ---
Shift chart check completed.
[2018-08-08 20:00] VITALS: BP 149/62
--- NOTE | 2018-08-08 21:52 | NUR ---
PT AGITATED, CONFUSED, RESTLESS. PT REFUSING TO GO TO BED, CRYING THAT SHE IS AFRAID. PT REORIENTED, REASSURED OF SAFETY, AND REDIRECTED. PT ASSISTED BACK INTO GERICHAIR, PLACED IN RECLINED POSITION WITH BLANKET AND PILLOW AND BROUGHT BACK INTO DINING AREA WITH LOW LIGHTING TO PROMOTE RELAXATION PT REMAINS AGITATED, NO LONGER CRYING OR FEARFUL. PT STATING "WHY DOES EVERYONE HATE ME". PT AGAIN REASSURED AND REDIRECTED, SOMEWHAT EFFECTIVE. PT RESTING IN GERICHAIR AND SINGING AT THIS TIME. WILL CONTINUE TO REDIRECT AND REORIENT PT NEEDED. WILL PROVIDE EMOTIONAL SUPPORT AND REASSURANCE APPROPRIATE. Q 15 MIN MONITORING PER POLICY.
--- NOTE | 2018-08-09 01:12 | NUR ---
24 HR chart check completed.
--- NOTE | 2018-08-09 06:33 | NUR ---
ON Q15 MINUTE CHECKS PATIENT SLEPT APPROXIMATELY 1 HOUR OF SLEEP. PATIENT WAS UP IN THE GERICHAIR IN THE DINING ROOM ALL NIGHT. PATIENT REFUSED TO GO LAY DOWN IN HER BED, WHEN IN BED PATIENT WOULD BEGIN CRYING THAT SHE WANTED IN THE CHAIR. PATIENT MOVING LIMBS AROUND ALL NIGHT. SEEMS TO HAVE BEEN SPEAKING WITH UNSEEN OTHERS PERIODICALLY. WHEN ASKED PATIENT WHOM SHE WAS SPEAKING TO, PATIENT IGNORED THIS NURSE.
[2018-08-09 07:32] VITALS: BP 154/62
[2018-08-09 08:30] VITALS: BP 148/62
--- NOTE | 2018-08-09 09:30 | NUR ---
DR SANFORD ON UNIT TO SEE PATIENT
--- NOTE | 2018-08-09 11:51 | NUR ---
AM GROUP/GAMES/EXERCISES PT ATTENDED FIRST 10 MINUTES OF GROUP BUT BEGAN INTERUPTING THIS STAFF EVERY 30 SECONDS. PT BECAME A DISTARCTION AND WAS REMOVED INTO THE DIA WITH NURSES. PT WILL CONTINUE TO BE ENCOURAGED TO ATTEND AND PARTICIPATE TO BEST OF PT ABILITY WHEN MORE APPROPRIATE.
--- NOTE | 2018-08-09 12:00 | NUR ---
P-CONFUSION. PATIENT ALERT WITH CONFUSION. PATIENT WITH SHORT TERM AND CUSTODIAL MEMORY DEFICITS. NO RESPIRATORY DISTRESS NOTED. PATIENT WITH NO SUICIDAL OR HOMICIDAL IDEATIONS. PATIENT WITH NO DELUSIONS OR HALLUCINATIONS AT THIS TIME. PATIENT ATTEMPTING TO AMBULATE ON UNIT WITHOUT ASSISTANCE. PATIENT TOILETED THROUGHOUT SHIFT. I-REDIRECTION WITH 1:1 THERAPEUTIC INTERVENTIONS AND PRESENT REALITY. EDUCATE AND ENCOURAGE MEDICATION COMPLIANCE. R-PATIENT MEDICATION COMPLIANT. REDIRECTION WITH 1:1 THERAPEUTIC INTERVENTIONS EFFECTIVE FOR SHORT PERIODS OF TIME DUE TO PATIENT COGNITON. PATIENT AGITATED INTERMITTENTLY THROUGHOUT SHIFT. PATIENT INTERACTING WITH PEERS AT TIMES IN DINING AREA AND IN HALLWAY. P-CONTINUE TO ENCOURAGE MEDICATION COMPLIANCE, CONTINUE TO PRESENT REALITY, ENCOURAGE GROUP THERAPY WHILE AWAKE
--- NOTE | 2018-08-09 13:40 | NUR ---
Shift chart check completed.
--- NOTE | 2018-08-09 15:56 | NUR ---
MENDY YOUSSEF/HERBERTH PT ATTENDED FIRST FEW MINUTES OF GROUP, BUT HAD TO BE REMOVED DUE TO YEELING OUT FOR HER . PT WILL CONTINUE TO BE ENCOURAGED TO ATTEND AN DPARTICIPATE IN FUTURE GROUP SESSIONS.
[2018-08-09 20:00] VITALS: BP 136/72
--- NOTE | 2018-08-09 20:42 | NUR ---
P-CONFUSION. PATIENT ALERT WITH CONFUSION. PATIENT WITH SHORT TERM AND SHELTER MEMORY DEFICITS. NO RESPIRATORY DISTRESS NOTED. PATIENT WITH NO SUICIDAL OR HOMICIDAL IDEATIONS. PATIENT WITH NO DELUSIONS OR HALLUCINATIONS AT THIS TIME. PATIENT TOILETED THROUGHOUT SHIFT. I-REDIRECTION WITH 1:1 THERAPEUTIC INTERVENTIONS AND PRESENT REALITY. EDUCATE AND ENCOURAGE MEDICATION COMPLIANCE. R-PATIENT MEDICATION COMPLIANT. REDIRECTION WITH 1:1 THERAPEUTIC INTERVENTIONS EFFECTIVE FOR SHORT PERIODS OF TIME DUE TO PATIENT COGNITON. PATIENT AGITATED INTERMITTENTLY THROUGHOUT SHIFT. PATIENT INTERACTING WITH PEERS AT TIMES IN DINING AREA AND IN HALLWAY. NOURISHMENT AND FLUIDS PROVIDED P-CONTINUE TO ENCOURAGE MEDICATION COMPLIANCE, CONTINUE TO PRESENT REALITY, ENCOURAGE GROUP THERAPY WHILE AWAKE
--- NOTE | 2018-08-09 22:22 | NUR ---
24 HR chart check completed.
--- NOTE | 2018-08-10 00:50 | NUR ---
24 HR chart check completed.
--- NOTE | 2018-08-10 05:46 | NUR ---
Patient slept approx. 7 hours throughout shift. Q 15 minute safety checks continued and maintained.
[2018-08-10 08:00] VITALS: BP 140/72
--- NOTE | 2018-08-10 08:00 | NUR ---
Treatment Plan meeting with Dr. Nichols, RN, AT, SW and Board Runner. Plan for discharge .
--- NOTE | 2018-08-10 12:18 | NUR ---
AM GROUP/MUSIC/GAMES PT ATTENDED GROUP BUT REMAINED ASLEEP IN CHAIR ENTIRE TIME. PT WILL CONTINUE TO ATTEND AND BE ENCOURAGED TO PARTICIPATE IN ANY FUTURE GROUP SESSIONS.
--- NOTE | 2018-08-10 14:20 | NUR ---
P: CONFUSION, LACK OF SAFETY, INCREASED ANXIETY I: REDIRECT, DISTRACTION, OFFER HOC AND MEALS, PT TOIELTED BY STAFF THROUGH OUT THE SHIFT. R: PT HAS BEEN COOPERATIVE THROUGHOUT THE SHIFT, RESTLESS NOTED AT TIMES, ABLE TO REDIRECT WITH 1:1, DISTRACTIONS SUCH MUSIC AND SITTING WITH OTHER PEERS P: CONTINUE TO ORIENT PATIENT TOLERATED, PROVID HOC NEEDED, NO SI/HI OR DELUSIONS NOTED AT THIS TIME.
--- NOTE | 2018-08-10 15:57 | NUR ---
Clinical Updates faxed to [facility].
--- NOTE | 2018-08-10 15:59 | NUR ---
Faxed [facility] for an update. Awaiting response.
[2018-08-10 20:00] VITALS: BP 125/60
--- NOTE | 2018-08-10 21:59 | NUR ---
MEDICATION COMPLIANT. CALM AND INTERACTIVE WITH STAFF. NO C/O. STATES HAD A GOOD DAY. NO PROBLEMS TO DISCUSS. REMINDED TO PUSH CALL BUTTON ON BED IF SHE NEEDS ANYTHING.
--- NOTE | 2018-08-11 05:44 | NUR ---
SLEPT WELL PAST 2230PM
[2018-08-11 07:40] VITALS: BP 133/72
--- NOTE | 2018-08-11 11:15 | NUR ---
LCD 08/09, NRD 08/09 per Gu[facility]erm[facility] at [facility]. Faxed continued review stay clinical. Awaiting response. Ref # [id number]
--- NOTE | 2018-08-11 11:20 | NUR ---
DR. SHEPHERD ON UNIT TO ASSESS PT, UPDATE PROVIDED.
--- NOTE | 2018-08-11 12:00 | NUR ---
Treatment Plan meeting with Dr. Simone RN and Hand Reamer. Plan for discharge Thursday. Pt. will discharge to [facility].
[2018-08-11 20:00] VITALS: BP 144/59
--- NOTE | 2018-08-11 22:00 | NUR ---
UP IN [place] CHAIR WATCHING TV. DECLINES ONE TO ONE. STATES "I AM FINE" AND SMILES. MEDICATION COMPLIANT. WILL MONITOR FOR CHANGES IN MOOD OR BEHAVIOR. Q15 MIN CHECKS CONTINUE
--- NOTE | 2018-08-12 03:52 | NUR ---
24 HR chart check completed.
--- NOTE | 2018-08-12 05:49 | NUR ---
SLEPT WELL PAST 2230PM
[2018-08-12 07:35] VITALS: BP 122/69
--- NOTE | 2018-08-12 08:00 | NUR ---
Treatment Plan meeting with Dr. Nichols, RN, SW and Scale Operator. Plan for discharge Thursday. Pt. discharging to [facility].
--- NOTE | 2018-08-12 10:56 | NUR ---
Spoke with Cleo at [facility]. Advised of plans to discharge tommorow. Copy of PASRR and Letter which was faxed from [place] faxed to [place] Attn: Cleo.
--- NOTE | 2018-08-12 11:20 | NUR ---
NO ADVERSE MOODS OR BEHAVIORS NOTED THIS SHIFT. PT ALERT TO PERSON ONLY, SHORT TERM MEMORY DEFICITS NOTED, PER PT BASELINE. PT CALM, MOOD IS STABLE. NO HALLUCINATIONS OR DELUSIONS NOTED AT THIS TIME. NO SUICIDAL THOUGHTS OR BEHAVIORS NOTED. PT UP TO GERICHAIR D/T INABILITY TO AMBULATE INDEPENDENTLY. PT CONTINENT OF BOWEL AND BLADDER, EPISODES OF INCONTINENCE NOTED, CARE PROVIDED NEEDED. PLAN IS TO MONITOR PT BEHAVIORS ON Q15 MIN SAFETY CHECKS, ENCOURAGE MED COMPLIANCE, PROVIDE EMOTIONAL SUPPORT AND 1:1 FOR PT TO VOICE FEELINGS.
--- NOTE | 2018-08-12 11:47 | NUR ---
Call placed to patient to notify of plans to discharge Thursday. receptive and voiced no questions or concerns. Transportation arranged with [facility] to transport with milk pickup driver time 1:00 p.m. Call Placed to [facility] [employer] Kortney Antunez to notify of discharge Thursday. Left Voice Message for Return call back.
[2018-08-12 20:00] VITALS: BP 156/76
--- NOTE | 2018-08-13 04:15 | NUR ---
PATIENT ALERT AND ORIENTED TO SELF, PLEASANTLY CONFUSED. MOOD STABLE. PT CALM, COOPERATIVE, NO BEHAVIORS NOTED. COMPLIANT WITH HOC, NO AGITATION OR AGGRESSION NOTED. MEDICATION COMPLIANT WITHOUT DIFFICULTY, UNABLE TO EDUCATE DUE TO COGNITION. VOICES NO SI/HI AND HALLUCINATIONS, NO NOTED RESPONDING TO INTERNAL STIMULI. NO PARANAOIA/DELUSIONS OBSERVED. NO PHYSICAL COMPLAINTS VOICED. PATIENT CURRENTLY LAYING DOWN WITH EYES CLOSED, RESPIRATIONS EASY AND REGULAR, NO SIGNS OR SYMPTOMS OF DISTRESS NOTED.
--- NOTE | 2018-08-13 05:19 | NUR ---
PATIENT OBSERVED ON Q 15 MIN CHECKS TO HAVE SLEPT 6 HOURS WITH NO AWAKENINGS OR SIGNS AND SYMPTOMS OF DISTRESS NOTED.
--- NOTE | 2018-08-13 05:25 | NUR ---
24 HOUR CHART CHECK COMPLETED.
--- NOTE | 2018-08-13 07:49 | NUR ---
DR. SANFORD NOTIFIED OF PATIENT BEING DISCHARGED TODAY.
[2018-08-13 08:24] VITALS: BP 150/59
--- NOTE | 2018-08-13 09:36 | NUR ---
NO ADVERSE MOODS OR BEHAVIORS NOTED THIS SHIFT. PATIENT IS ALERT TO SELF ONLY. ST/LT MEMORY DEFICITS NOTED. THIS IS PATIENTS BASELINE. MOOD STABLE. INTERACTING WITH STAFF AND PEERS. SITTING IN DINING ROOM. NO S/S OF INTERACTING WITH INTERNAL STIMULI. NO DELUSIONAL THOUGHT PROCESS NOTED. PATIENT DENIES HALLUCINATIONS, DELUSIONS, SI/HI, OR PAIN. PATIENT'S GAIT IS UNSTEADY WHILE AMBULATING AND IS UTILIZING THE GERICHAIR AT THIS TIME. ASSISTANCE PROVIDED WITH ADLS AND TRANSFERRING. PATIENT ATE BREAKFAST. RESPIRATIONS EVEN AND UNLABORED ON ROOM AIR. MEDICATION COMPLIANT WITH EDUCATION PROVIDED ON EACH MED. FALLING STAR PROGRAM MAINTAINED. Q15 MINUTE CHECKS MAINTAINED FOR SAFETY.
--- NOTE | 2018-08-13 11:13 | NUR ---
DR. SANFORD ON FLOOR TO ASSESS PATIENT.
--- NOTE | 2018-08-13 11:24 | NUR ---
Pt is discharging to [facility] today. Follow-up will be with Dr Nichosl, visiting psychiatrist. While at [facility], pt's behaviors and mood improved. She continues to be confused. Pt interacted minimally with staff and peers.
--- NOTE | 2018-08-13 12:00 | NUR ---
Shift chart check completed.
[2018-08-13] MEDS ORDERED: MIRTAZAPINE15 M2 PO (12:30)
[2018-08-13] MEDS ORDERED: EXELON13.3 MG/21 T (12:30)
[2018-08-13] MEDS ORDERED: MEMANTINE HCL10 MG PO (12:30)
[2018-08-13] MEDS ORDERED: ZYPREXA2.5 MG PO (12:30)
[2018-08-13] MEDS ORDERED: CLONAZEPAM1 MG PO (12:30)
[2018-08-13] MEDS ORDERED: VITAMIN D5000 UNI1 PO (13:04)
--- NOTE | 2018-08-13 13:23 | NUR ---
ATTEMPTED TO CALL NURSE TO NURSE AT [phone]. MAILBOX IS FULL AND UNABLE TO LEAVE A MESSAGE.
--- NOTE | 2018-08-13 13:25 | NUR ---
PT DISCHARGED OFF FLOOR AT THIS TIME VIA STRETCHER. ESCORTED BY AMBULANCE AND SECURITY. PATIENT WAS AT BASELINE WHEN DISCHARGED OFF THE UNIT, ALERT AND CONFUSED. ALL BELONGINGS WITH PATIENT. PAPER WORK GIVEN TO THE AMBULANCE. RESPIRATIONS EVEN AND UNLABORED ON ROOM AIR.
--- NOTE | 2018-08-13 13:35 | NUR ---
ATTEMPTED TO CALL FACILITY AT THIS TIME TO GIVE NURSE TO NURSE AT [phone]. NO ANSWER AT THIS TIME, MAILBOX FULL. WILL ATTEMPT TO CALL AGAIN.
--- NOTE | 2018-08-13 13:52 | NUR ---
NURSE TO NURSE GIVEN AT THIS TIME TO BRISEIDA.
--- NOTE | 2018-08-13 14:00 | NUR ---
Discharge Paperwork Sent to [facility].
--- NOTE | 2018-08-17 12:15 | NUR ---
LCD 08/11, IP 1 additional day karlos per [facility] at [facility]. All days approved. Ref # [id number].
== END 2018-08-13 13:25 | disposition other institution (70) | DRG 57 ==
LOC: 3N 16:04
PROVIDERS: Family Medicine; ADMIT Psychiatry & Neurology Psychiatry
DX: G30.9 Alzheimer's disease, unspecified (principal); F33.3 Major depressive disorder, recurrent, severe with psychotic symptoms; F01.51 Vascular dementia, unspecified severity, with behavioral disturbance; F02.81 Dementia in other diseases classified elsewhere, unspecified severity, with behavioral disturbance; K21.9 Gastro-esophageal reflux disease without esophagitis; I10 Essential (primary) hypertension; F41.1 Generalized anxiety disorder; E07.9 Disorder of thyroid, unspecified; Z96.641 Presence of right artificial hip joint; E78.5 Hyperlipidemia, unspecified; Z95.0 Presence of cardiac pacemaker; Z82.49 Family history of ischemic heart disease and other diseases of the circulatory system; Z79.899 Other long term (current) drug therapy